=== PATIENT | male | born 1980 | race Caucasian/White ===

== ENCOUNTER → 2016-12-02 | Outpatient (CLI) | payer BC ==
--- NOTE | 2016-12-02 09:08 | Diagnostic Imaging Report ---
PROCEDURE: CT sinuses without contrast TECHNIQUE: Multiple contiguous axial images were obtained through the sinuses without the use of intravenous contrast. Coronal and sagittal reformations were then performed. INDICATION: Dizziness. Chronic sinusitis. FINDINGS: There is minimal mucosal thickening in the ethmoidal air cells. The maxillary sinuses demonstrate mucous retention cyst in the right maxillary sinus and mild mucosal thickening inferiorly. There is minimal mucosal thickening along the ostiomeatal complex on the right side but does not appear to be occluded. The left ostiomeatal complex appears patent. The sphenoidal sinus appears clear. The frontal sinuses appear clear. The mastoid air cells and the middle ear cavities appear intact. The orbits appear symmetric. There is mucosal thickening along the inferior turbinates and the left middle turbinate. There is mild nasal septal deviation to the right side. This results in mild narrowing of the nasal passages particularly on the left. IMPRESSION: Mild sinonasal disease. Dictated by: Dictated on workstation # [id number]
== END ==
LOC: RAD 07:42
PROVIDERS: ATTEND Nurse Practitioner
DX: J32.9 Chronic sinusitis, unspecified (principal)
CPT/HCPCS: 70486